=== PATIENT | male | born 1980 | race Caucasian/White ===

== ENCOUNTER 2022-04-13 14:02 | Emergency (ER) | payer MEDICAID, OTHER ==
[~2022-04-13] VITALS: Ht 182.9 cm; Wt 191.9 kg
[2022-04-13] MEDS ORDERED: cloNIDine HCL 0.1 MG TAB ONE (14:14)
[2022-04-13] MEDS ORDERED: cloNIDine HCL 0.1 MG TAB PO ONE (14:30)
[2022-04-13] MEDS ORDERED: SODIUM CHLORIDE 0.9% 1,000 ML IV ONE ×2 (15:45→16:30)
[2022-04-13 16:32] LABS: Urine Bacteria NONE SEEN /hpf (None Seen); Urine Blood Negative /uL (Negative); Urine Hyaline Cast FEW /lpf (0 - 2); Urine Mucus FEW (None Seen); Urine Specific Gravity 1.033 (1.001-1.035); Urine WBC 2 /hpf (0 - 3)
[2022-04-13 16:46] LABS: Basophils # (auto) 0.1 10 ^3/uL (0-0.2); Basophils % (auto) 0.8 % (0.0-2.0); Eosinophils # (auto) 0.1 10 ^3/uL (0-0.8); Eosinophils % (auto) 0.6 % (0.0-7.0); Hematocrit 50.8 % (41.0-53.0); Hemoglobin 16.5 g/dL (13.5-17.5); Lymphocytes # (auto) 1.6 10 ^3/uL (0.4-5.4); Lymphocytes % (auto) 16.1 % (10.0-50.0); Mean Corpuscular Hemoglobin 28.1 pg (28.0-32.0); Mean Corpuscular Hgb Conc. 32.4 g/dL (32.0-36.0); Mean Corpuscular Volume 86.5 fL (80.0-100.0); Monocytes # (auto) 0.9 10 ^3/uL (0-1.3); Monocytes % (auto) 9.2 % (0.0-12.0); Neutrophils # (auto) 7.2 10 ^3/uL (1.6-8.6); Neutrophils % (auto) 73.3 % (37.0-80.0); Red Blood Cells 5.88 10^6/uL (4.5-5.90); Red Cell Distribution Width 14.4 % (11.8-14.3); White Blood Cell 9.8 10^3/uL (4.4-10.8)
[2022-04-13 17:07] LABS: Albumin 3.5 g/dL (3.4-5.0); BUN/Creatinine Ratio 14.2; Calcium 8.9 mg/dL (8.5-10.1); Magnesium 2.1 mg/dL (1.6-2.6); Potassium 4.4 mmol/L (3.5-5.1)
[2022-04-13 17:10] LABS: Total Protein 7.7 g/dL (6.4-8.2)
[2022-04-13] MEDS ORDERED: dilTIAZem 25 MG/5 ML VIAL IV ONE (18:00)
[2022-04-13] MEDS ORDERED: dilTIAZem HCL 50 MG/10 ML VIAL IV ONE (20:01)
[2022-04-13] MEDS ORDERED: dilTIAZem 125mg/125ml BAG KIT 125 ML IV ONE (21:45)
[2022-04-14] MEDS ORDERED: dilTIAZem 125mg/125ml BAG KIT 125 ML IV ONE (05:28)
[2022-04-14 07:43] VITALS: BP 121/86
== END 2022-04-14 08:14 | disposition short-term general hospital (02) ==
LOC: ER 14:02
DX: I48.0 Paroxysmal atrial fibrillation (principal); R10.11 Right upper quadrant pain; K76.0 Fatty (change of) liver, not elsewhere classified; I10 Essential (primary) hypertension; E66.01 Morbid (severe) obesity due to excess calories; Z68.43 Body mass index [BMI] 50.0-59.9, adult; Z20.822 Contact with and (suspected) exposure to COVID-19
CPT/HCPCS: 36415; 71046; 76705; 80053; 81001; 83690; 83735; 83880; 84484; 85025; 87426; 93005; 96361; 96365; 96366; 96376; 99285; J7030

== ENCOUNTER 2023-05-31 23:21 | Emergency (ER) | payer MEDICAID ==
[~2023-05-31] VITALS: Ht 182.9 cm; Wt 175.0 kg
[2023-05-31 23:42] LABS: Basophils # (auto) 0.1 10 ^3/uL (0-0.2); Eosinophils # (auto) 0.2 10 ^3/uL (0-0.8); Eosinophils % (auto) 2.3 % (0.0-7.0); Hemoglobin 16.4 g/dL (13.5-17.5); Lymphocytes # (auto) 2.1 10 ^3/uL (0.4-5.4); Lymphocytes % (auto) 23.8 % (10.0-50.0); Mean Corpuscular Hemoglobin 28.9 pg (28.0-32.0); Mean Corpuscular Hgb Conc. 33.4 g/dL (32.0-36.0); Mean Corpuscular Volume 86.5 fL (80.0-100.0); Monocytes # (auto) 1.2 10 ^3/uL (0-1.3); Monocytes % (auto) 13.8 % (0.0-12.0); Neutrophils # (auto) 5.3 10 ^3/uL (1.6-8.6); Neutrophils % (auto) 59.1 % (37.0-80.0); Nucleated Red Blood Cells % 0.1 %; Red Blood Cells 5.67 10^6/uL (4.5-5.90); Red Cell Distribution Width 15.4 % (11.8-14.3); White Blood Cell 8.9 10^3/uL (4.4-10.8)
[2023-05-31 23:43] VITALS: PULSE 153; RESP 15; O2SAT 94
[2023-05-31 23:58] LABS: Alanine Aminotransferase 27 U/L (7-40); Alkaline Phosphatase 98 U/L (46-116); Anion Gap 2 (5-15); Aspartate Aminotransferase 25 U/L (13-40); BUN/Creatinine Ratio 12.2 (10.0-20.0); Bilirubin, Total 0.4 mg/dL (0.2-1.0); Blood Urea Nitrogen 15 mg/dL (9-23); Calcium 9.8 mg/dL (8.7-10.4); Carbon Dioxide 31 mmol/L (20-30); Chloride 106 mmol/L (98-107); Glucose 77 mg/dL (74-106); Magnesium 1.7 mg/dL (1.6-2.6); Sodium 139 mmol/L (136-145); Total Protein 7.9 g/dL (5.7-8.2)
[2023-06-01] MEDS ORDERED: ASPirin 325 MG TAB PO ONE
[2023-06-01] MEDS ORDERED: dilTIAZem 125mg/125ml BAG KIT 125 ML IV ONE
[2023-06-01] MEDS ORDERED: FUROSEMIDE 20 MG/2 ML VIAL IV ONE (01:00)
[2023-06-01] MEDS ORDERED: dilTIAZem 25 MG/5 ML VIAL IV ONE ×2 (03:45)
[2023-06-01] MEDS ORDERED: dilTIAZem 120MG ER CAP PO ONE (03:45)
[2023-06-01 05:44] LABS: COVID19 ANTIGEN SOFIA FIA NEGATIVE (NEGATIVE)
[2023-06-01] MEDS ORDERED: METOPROLOL TARTRATE 1MG/1ML-5ML VIAL IV ONE (05:45)
[2023-06-01 07:40] VITALS: PULSE 83; RESP 14; TEMP 98.3; O2SAT 95
[2023-06-01 11:25] VITALS: BP 130/79; PULSE 89; RESP 21; O2SAT 96
== END 2023-06-01 11:36 | disposition short-term general hospital (02) ==
LOC: ER 23:21
DX: I48.20 Chronic atrial fibrillation, unspecified (principal); R07.89 Other chest pain; R09.89 Other specified symptoms and signs involving the circulatory and respiratory systems; I10 Essential (primary) hypertension
CPT/HCPCS: 36415; 71045; 80053; 83605; 83735; 83880; 84484; 85025; 87426; 93005; 96365; 96366; 96375; 96376; 99291; J1940